=== PATIENT | male | born 1955 | race Caucasian/White ===

== ENCOUNTER 2020-03-14 10:20 | Emergency (ER) | payer OTHER ==
[~2020-03-14] VITALS: Ht 172.7 cm; Wt 67.1 kg
[~2020-03-14 10:20] MED LIST: ASA81 MG PO; TOPROL XL25 M1 PO
== END 2020-03-14 18:43 | disposition home or self-care (01) ==
LOC: ER 10:20
DX: I95.89 Other hypotension (principal); D64.89 Other specified anemias; Z20.822 Contact with and (suspected) exposure to COVID-19
CPT/HCPCS: 93005; 36430; 86904; 86922; P9021